=== PATIENT | female | born 1965 | race Caucasian/White ===

== ENCOUNTER 2016-09-27 14:03 | Emergency (ER) | payer BC ==
--- NOTE | 2016-10-03 14:24 | ER ---
ADMIT: 09/27/2016 RM/LOC: ER [facility] MR#: [id number] [place], [place] [id number] DEVEN GARCIA [address] [place] [id number] Emergency Room Report SEX: F AGE: 51 : 1965 DATE: 09/27/2016 HISTORY OF PRESENT ILLNESS: The patient is a 51-year-old female, presents to the emergency room with five days of abdominal pain. She points to the epigastric area. Her vitals are within normal limits. Blood pressure 144/82. No fever. ALLERGIES: SHE IS ALLERGIC TO MORPHINE AND NUBAIN. MEDICATIONS: She is taking Requip, Neurontin, Nexium, Singulair, and Ambien. PAST MEDICAL HISTORY: Irritable bowel, gastroparesis, bilateral foot issues with adhesions in intestine, hysterectomy, and gallbladder. PHYSICAL EXAMINATION: On examination, epigastric area tenderness she says radiates to the back and also left lower quadrant abdominal pain. The rest of the examination is within normal limits. LABORATORY DATA: CBC within normal limits. Chemistry, potassium 3.6. Rest of the labs normal. H. pylori, nonreactive. UA, normal. CT scan of the abdomen, nothing really unremarkable except for some mild diverticulosis. CLINICAL IMPRESSION: Diverticulosis, mild with gastroparesis history and abdominal pain, upper quadrant, given Reglan and Benadryl. Metoclopramide use for gastroparesis relax this sphincter and helps pass the food. She is encouraged to follow up with her primary provider and use the Reglan with Benadryl in order to avoid dyskinesia. The patient discharged. will drive her home. RENATO Moralez / Cody Schwab MD / arlette JOB #: [id number] CC: Cody Schwab MD, Attending Physician Stephon Gilbert MD, Family Physician
== END 2016-09-27 18:07 | disposition home or self-care (01) ==
LOC: ER 14:03
DX: K57.90 Diverticulosis of intestine, part unspecified, without perforation or abscess without bleeding (principal); Z87.19 Personal history of other diseases of the digestive system; Z90.710 Acquired absence of both cervix and uterus; Z90.49 Acquired absence of other specified parts of digestive tract; Z88.5 Allergy status to narcotic agent; Z88.8 Allergy status to other drugs, medicaments and biological substances; Z79.899 Other long term (current) drug therapy